=== PATIENT | female | born 1985 | race Caucasian/White ===

== ENCOUNTER → 2019-02-07 | Outpatient (CLI) | payer OTHER, SELFPAY | END | disposition home or self-care (01) | LOC: LAB 12:51 | PROVIDERS: Referring Provider Obstetrics & Gynecology; Visit Provider Obstetrics & Gynecology | DX: Z31.430 Encounter of female for testing for genetic disease carrier status for procreative management (principal) | CPT/HCPCS: 36415 ==

== ENCOUNTER 2019-09-16 07:10 | Inpatient (IN) | payer OTHER, SELFPAY ==
[2019-09-16] VITALS (50 sets, daily range): BP systolic 91–136; BP diastolic 50–90; PULSE 87–126; TEMP 36.4–37.4; O2SAT 96–99; BMI 29.8
[2019-09-16] MEDS: Lactated Ringers 1,000 ML 50 ML IV (07:40)
[2019-09-16 07:53] LABS: Absolute Lymphocyte Count 2.08 X10^3/uL (0.83-4.51); Basophil# 0.04 X10^3/uL; Basophil% 0.4 % (0-1); Eosinophil# 0.15 X10^3/uL; Eosinophils% 1.5 % (0-5); Hematocrit 37.4 % (37-47); Lymphocyte # 2.08 X10^3/ul (4.0); Lymphocyte % 21.2 % (19-41); Mean Corp Hgb Conc 34.8 g/dL (32-36); Mean Corpuscular Hgb 32.3 pg (27.0-32.0); Mean Corpuscular Volume 92.8 fL (81-99); Mean Platelet Vol. 10.4 fl (6.2-12.0); Monocyte# 0.52 X10^3/uL; Monocyte% 5.3 % (0-10); NRBC Flagged by Analyzer 0 % (0-5); Neutrophil # 6.96 X10^3/uL (2.7-7.7); Neutrophil % 70.9 % (47-70); Platelet Count 207 K/mm3 (150-450); RBC Distribution Width CV 13.6 % (11.6-14.6); RBC Distribution Width SD 45.7 fl (35.1-43.9); Red Blood Count 4.03 M/mm3 (4.2-5.4); White Blood Count 9.8 K/mm3 (4.4-11.0)
[2019-09-16] MEDS: Oxytocin 30 units/NS 500 ml 30 UNITS/500 ML IV.SOLN IV (08:03)
--- NOTE | 2019-09-16 08:41 | PCM.HP.OB ---
- Problem List (1) Advanced maternal age (AMA) in Status: Acute History Date of Admission: 09/16/19 Final KARLOS: 09/19/19 Gestational age: 39 Weeks and 4 Days History of this : This is a 34 year-old, at 39.4 weeks gestational age here for induction of labor for AMA. Allergies No Known Allergies Allergy (Verified 09/16/19 07:33) Home Medications: Home Medications Tablet 1 tab PO DAILY 09/16/19 Smoking Status: Never smoker Alcohol: None Number of Fetus(es): 1 NST - FHR Rate Baby A Baseline: 135 Variability:: Moderate Accelerations:: 15 x 15 Decelerations:: None NST Reactive:: Yes FHR Category:: Category I Uterine Activity:: irregular contractions History Past Pregnancies: Past Pregnancies Delivery Date Name GA/ Weeks Outcome Route Wt Infant Sex Labor Length Anesthesia Delivery Location Provider FOB Labs: Patient is A+ Rubella- immune HB-negative HIV- NR RPR- NR GBS -negative Expected Delivery Method: Spontaneous Vaginal Physical Exam Vitals: Vital Signs Temp Pulse BP 98.8 F 126 H 125/90 H 09/16/19 07:28 09/16/19 07:28 09/16/19 07:28 General: Alert, Oriented x3, - - Mild anxiety noted. Lungs: Normal air movement Abdomen: Soft, Non Tender, Gravid Neurological: Cranial nerves II-XII grossly intact Estimated gestational size: Appropriate for gestational size Cervix Dilation (cm): 2 Station: -2 Effacement (%): 60 Assessment/Plan All Active Problems Advanced maternal age (AMA) in (Acute) This is a 34 year-old, , at 39.4 weeks gestational age for induction of labor for AMA. Admit to L&D Encouraged ambulation and use of birthing ball Monitor FHT, TOCO Start pitocin and titrate as needed Nitrous if desired Anticipate .
[2019-09-16] MEDS: 0.9% Normal Saline Single 100 ML IV.SOLN. IY (14:00)
--- NOTE | 2019-09-16 14:01 | PCM.PN.BLA ---
Progress Note Patient continues to ambulate hallways. Stated not feeling many contractions at this time. Denies any pain. Discussed R/B/A to placement of a elias bulb to assist with dilation. Patient agrees to plan of care. Pitocin at 12mu/min at this time. Category 1 tracing. CE- 2/60/-2 . Elias bulb placed and filled with 40cc/NS. Patient tolerated procedure well. A/P Continue to monitor with EFM, and TOCO Continue to titrate Pitocin Pain medication/ epidural when indicated Anticipate STROKE Vital Signs/Narrative: Vital Signs Temp Pulse BP Pulse Ox 09/16/19 13:31 98 109/73 09/16/19 13:30 98.5 F 09/16/19 12:19 97.6 F L 90 113/72 97 09/16/19 11:23 90 111/73 09/16/19 11:22 97.6 F L 09/16/19 10:05 101 H 97 09/16/19 10:04 98.7 F 97 113/78 97
--- NOTE | 2019-09-16 17:39 | PCM.PN.BLA ---
Progress Note Foleybulb out around 1530. Reports mild contractions. Interested in epidural placement soon. CE- 4-5/80/-2 A.R.O.M for clear fluid by Dr. Gallardo. A/P Continue plan of care. Epidural when desires Continue pitocin titration Anticipate STROKE Vital Signs/Narrative: Vital Signs Temp Pulse BP Pulse Ox 09/16/19 16:34 98.9 F 93 119/69 97 09/16/19 15:23 98.7 F 90 130/84 H 96 09/16/19 14:40 98.5 F 87 111/70
[2019-09-16] MEDS: Lactated Ringers 500 ML 999 ML IV ×2 (17:40→22:49)
[2019-09-16] MEDS: fentaNYL-bupivacaine (epidural) 100 ML BAG EPIDURAL ×2 (18:28→22:37)
[2019-09-16] MEDS: Lactated Ringers 1,000 ML 200 ML IV (19:36)
--- NOTE | 2019-09-16 22:15 | PCM.PN.BLA ---
Progress Note Patient resting comfortably with epidural anesthesia. Denies pain at this time. Irregular variables at times. Moderate variability with accelerations present. Over all reassuring. CE- 6/80/-2 IUPC placed without difficulty to assist with titration of Pitocin Continue with plan of care Frequent position changes/ utilization of peanut ball Anticipate . STROKE Vital Signs/Narrative: Vital Signs Temp Pulse BP Pulse Ox 20 21:45 97.8 F 97 20 21:44 98 101/69 20/20 21:12 98.1 F 98 106/63 96 20/20 20:06 97.9 F 97 109/66 98 20/20 19:27 93 109/60 20/20 19:26 99.0 F 98 09/15/20 19:25 97 20/20 19:20 112 H 96 20/20 19:15 104 H 97 20/20 19:10 101 H 98 20/20 19:05 94 97/54 L 98 20/20 19:01 101 H 108/55 L /20/20 19:00 99 97 03/20/20 18:57 102 H 114/58 L 03/20/20 18:55 100 97 03/20/20 18:52 103 H 131/59 H 0320/20 18:50 96 97 03/20/20 18:45 107 H 103/59 L 98 /20/20 18:41 104 H 111/62 03/20/20 18:40 105 H 99 03/20/20 18:37 104 H 97/54 L 03/20/20 18:36 100 105/59 L 03/20/20 18:35 98 03/20/20 18:34 103 H 93/55 L 03/20/20 18:33 106 H 96/58 L 03/20/20 18:31 110 H 106/57 L 03/20/20 18:30 98 03/20/20 18:27 107 H 111/62 03/20/20 18:25 107 H 99 03/20/20 18:21 95 136/63 H 03/20/20 18:20 97
[2019-09-16] MEDS: Ondansetron 4 MG/2 ML Vial IV (22:37)
[2019-09-17] VITALS (37 sets, daily range): BP systolic 92–125; BP diastolic 52–77; PULSE 79–180; RESP 16–18; TEMP 36.7–37.8; O2SAT 82–100
[2019-09-17] MEDS: Lactated Ringers 1,000 ML 200 ML IV (02:26)
--- NOTE | 2019-09-17 02:35 | PCM.PN.BLA ---
Progress Note Patient is completely dilated and has been pushing for 1 hour. Pain well controlled with epidural. Category 1 tracing. CE-complete at 0 station. Discussed allowing patient to labor down for an hour and resume pushing. Patient and agree with plan of care. Continue plan of care. Resume pushing in 1 hour Anticipate STROKE Vital Signs/Narrative: Vital Signs Temp Pulse BP Pulse Ox 09/17/19 01:53 102 H 113/65 09/17/19 01:52 98.9 F 97 09/17/19 01:51 114 H 93 09/17/19 01:50 100 96 09/17/19 01:00 104 H 97 09/17/19 00:55 104 H 98 09/17/19 00:50 92 108/64 09/17/19 00:49 98.6 F 98 09/16/19 23:36 98.1 F 94 91/54 L 96 09/16/19 22:45 99.2 F H 100 92/50 L 97
[2019-09-17] MEDS: Oxytocin 30 units/NS 500 ml 30 UNITS/500 ML IV.SOLN 334 UNITS IV (06:00)
--- NOTE | 2019-09-17 06:44 | PCM.OPRPT ---
Problem List (1) Advanced maternal age (AMA) in Status: Acute (2) Vaginal delivery Status: Acute (3) Perineal laceration during delivery, delivered Status: Acute Report of Operation Date of Procedure: 09/17/19 Vaginal Delivery Maternal Presentation: Medically Indicated Induction Method of Induction: Pitocin, Cruz Bulb, Amniotomy Medical Reason for Induction: - - AMA Amniotic Membrane Rupture Type: Artificial Rupture of Membrane time: 1730 Amniotic Fluid Description: Clear Final KARLOS: 09/19/19 Final KARLOS Source: [place] <20 weeks Gestational age: 39 Weeks and 5 Days Date of Procedure: 09/17/19 Pre-Operative Diagnosis: Induction of labor, term gesation, advanced maternal age Post-Operative Diagnosis: same, live female Surgery/ Procedure Performed: Spontaneous Vaginal Delivery Type of Anesthesia: Epidural Description of Procedure: of live female infant without complication. Good maternal pushing efforts delivered head. Gentle downward traction with delivery of the anterior shoulder followed by the rest of the infant's body. Infant was vigorous and placed on maternal chest. Delayed cord clamping and cutting of cord performed. Placenta delivered intact without difficulty. Second-degree laceration repaired with 3-0 Rapide. Mother and baby bonding at this time. Presentation: Vertex, PEPPER Placental Delivery Description: Spontaneous Placenta Disposition: Pt. donated cord and placenta Cord Vessel Description: 3 Vessels Estimated Blood Loss: 250 A gender: Female (1 minute): 8 (5 minute): 9 Episiotomy Description: None Laceration: 2nd degree Medications given after delivery: IV Pitocin
[2019-09-17] MEDS: Acetaminophen 500 MG Tablet 1000 MG PO ×2 (11:39→19:48)
[2019-09-17] MEDS: Prenatal Vits Tablet 1 TABLET PO (11:39)
[2019-09-17] MEDS: Ibuprofen 600 MG Tablet PO ×2 (14:20→23:38)
[2019-09-17] MEDS: Senna/Docusate Sodium 1 Tablet PO (19:49)
[2019-09-18 00:15] VITALS: BP 116/77; PULSE 79; RESP 18; TEMP 36.5; O2SAT 97
[2019-09-18 04:52] VITALS: BP 106/60; PULSE 67; RESP 16; TEMP 36.4
[2019-09-18] MEDS: Acetaminophen 500 MG Tablet 1000 MG PO ×2 (05:03→16:09)
[2019-09-18] MEDS: Senna/Docusate Sodium 1 Tablet PO (07:53)
[2019-09-18 08:00] VITALS: BP 111/69; PULSE 72; RESP 18; TEMP 36.4
[2019-09-18] MEDS: Ibuprofen 600 MG Tablet PO (09:33)
--- NOTE | 2019-09-18 09:54 | PCM.PN.OB ---
Patient Problems: Active and Suspected Problems Advanced maternal age (AMA) in (Acute) Vaginal delivery (Acute) Perineal laceration during delivery, delivered (Acute) Subjective: Patient seen at bedside. Ambulating in room. Pain controlled with Motrin at this time. Stated just feeling sore and tired. Patient having increased pain with . Seen by and plan of care started. Initially thought she may want to be discharged after 24 hours but may stay to get help and support with . - Physical Exam Vitals/I&O's: Vital Signs Temp Pulse Resp BP Pulse Ox 97.5 F L 72 18 111/69 97 09/18/19 08:00 09/18/19 08:00 09/18/19 08:00 09/18/19 08:00 09/18/19 00:15 Oxygen Delivery Method Room Air Weight: 179 lb 3.2 oz Body Mass Index (BMI) 29.8 Intake and Output for Last 24 Hours 09/16/19 09/17/19 09/18/19 23:59 23:59 23:59 Intake Total 2307.90 / 2307.90 3159.90 / 3159.90 Output Total 1450 / 1450 Balance 2307.90 / 2307.90 1709.90 / 1709.90 General: Alert, Oriented x3 Lungs: Normal air movement Cardiovascular: Regular rate Abdomen: Soft, Non Tender Neurological: Cranial nerves II-XII grossly intact Psych/Mental Status: Normal Affect, - - Tearful at times when discussing . Support and encouragement provided Current Medications Acetaminophen (Tylenol) 1,000 mg PO Q8H PRN PRN PRN Reason: Pain Score 1-3/10 Last Admin: 09/18/19 05:03 Dose: 1,000 mg Documented by: Bisacodyl (Dulcolax) 10 mg RECTAL UD PRN PRN Reason: If no BM Dibucaine (Dibucaine) 1 applic TOPICAL TID PRN PRN; Protocol PRN Reason: Discomfort Hydrocortisone (Hytone) 1 applic TOPICAL TID PRN PRN; Protocol PRN Reason: Discomfort Ibuprofen (Motrin) 600 mg PO Q6H PRN PRN PRN Reason: Pain Score 1-3/10 Last Admin: 09/18/19 09:33 Dose: 600 mg Documented by: Methylergonovine Maleate (Methergine) 0.2 mg IM X1 PRN PRN Reason: Excess bleeding/uterine atony Ondansetron HCl (Zofran) 4 mg IV Q4H PRN PRN PRN Reason: Nausea Multivit/Folic Acid/Iron (Prenatabs Fa) 1 tablet PO DAILY@1200 TOMAS Last Admin: 09/17/19 11:39 Dose: 1 tablet Documented by: Senna/Docusate Sodium (Senokot-S, Tracey-Colace) 1 - 2 tablet PO DAILY PRN PRN PRN Reason: Constipation Last Admin: 09/18/19 07:53 Dose: 1 tablet Documented by: Simethicone (Mylicon) 80 mg PO PCHS PRN PRN Reason: Indigestion/Stomach pain Sodium Chloride () 5 - 15 ml IV UD PRN PRN Reason: SALINE FLUSH Medical Necessity - Tobacco Use Smoking Status: Never smoker Assessment/Plan All Active Problems Advanced maternal age (AMA) in (Acute) Vaginal delivery (Acute) Perineal laceration during delivery, delivered (Acute) PPD #1 Routine care consult Pain management
[2019-09-18] MEDS: Prenatal Vits Tablet 1 TABLET PO (11:32)
[2019-09-18 14:00] VITALS: BP 110/62; PULSE 85; RESP 16; TEMP 36.6
--- NOTE | 2019-09-18 15:33 | DCINST_ITS ---
Discharge Diet: No Restrictions May resume sexual activity in: 6-8 weeks Lifting Restrictions: 25 lbs Call your doctor if your incision/area has: Sudden Increased Bleeding, Increased Pain/ Swelling, Foul Smelling Discharge Call your doctor if you observe: Fever of 101 or Higher, Inability to have a bowel movement, Using more than one pad per hour, Shortness of breath, Dizziness, Chest pain, Calf discomfort Additional Instructions: If you experience any of the following, contact your healthcare provider. * Bleeding that soaks a pad every hour for 2 hours * Fever 100.4 or higher * Unrelieved incision or abdominal pain * Swelling, redness, discharge or bleeding from your incision or episiotomy site * Your incision begins to separate * Problems urinating (including inability to urinate or burning while urinat ing). * Visual changes * Severe headache * Flu-like symptoms * Pain or redness in one of both of your breasts * Pain, warmth, tenderness or swelling in your legs, especially the calf area * Frequent nausea and vomiting * Symptoms of depression or anxiety If you experience any of the following, call 911 or go to the nearest Emergency Room. * Chest pain * Problems breathing * Seizure activity * Partial or complete paralysis of a body part, slurred speech, weakness or drooping of the face, or a sudden inability to walk or hold your balance Allergies/Adverse Reactions: Allergies No Known Allergies Allergy (Verified 09/16/19 07:33) Medications to take at Discharge Tablet 1 tab PO DAILY 09/16/19 When: 2 weeks virtual visit Primary Care Physician: Care Physician,No Primary [Primary Care Provider] - Test Results: Test results from this visit will be discussed in further detail at your follow- up appointment, if applicable. Proposed Discharge Date: 09/18/19
--- NOTE | 2019-09-18 15:33 | PCM.DCVAG ---
Discharge Diet: No Restrictions May resume sexual activity in: 6-8 weeks Lifting Restrictions: 25 lbs Call your doctor if your incision/area has: Sudden Increased Bleeding, Increased Pain/ Swelling, Foul Smelling Discharge Call your doctor if you observe: Fever of 101 or Higher, Inability to have a bowel movement, Using more than one pad per hour, Shortness of breath, Dizziness, Chest pain, Calf discomfort Additional Instructions: If you experience any of the following, contact your healthcare provider. Bleeding that soaks a pad every hour for 2 hours Fever 100.4 or higher Unrelieved incision or abdominal pain Swelling, redness, discharge or bleeding from your incision or episiotomy site Your incision begins to separate Problems urinating (including inability to urinate or burning while urinating). Visual changes Severe headache Flu-like symptoms Pain or redness in one of both of your breasts Pain, warmth, tenderness or swelling in your legs, especially the calf area Frequent nausea and vomiting Symptoms of depression or anxiety If you experience any of the following, call 911 or go to the nearest Emergency Room. Chest pain Problems breathing Seizure activity Partial or complete paralysis of a body part, slurred speech, weakness or drooping of the face, or a sudden inability to walk or hold your balance Allergies/Adverse Reactions: Allergies No Known Allergies Allergy (Verified 09/16/19 07:33) Medications to take at Discharge Tablet 1 tab PO DAILY 09/16/19 When: 2 weeks virtual visit Primary Care Physician: Care Physician,No Primary [Primary Care Provider] - Test Results: Test results from this visit will be discussed in further detail at your follow-up appointment, if applicable. Proposed Discharge Date: 09/18/19
== END 2019-09-18 17:15 | disposition home or self-care (01) | DRG 807 ==
PROVIDERS: Admitting Provider Obstetrics & Gynecology; Referring Provider Obstetrics & Gynecology; Visit Provider Obstetrics & Gynecology
DX: O70.1 Second degree perineal laceration during delivery (principal); Z3A.39 39 weeks gestation of pregnancy; Z37.0 Single live birth
CPT/HCPCS: 59025; 59050; 85025; 86850; 86900; 86901; 99218; J7120; G0378; J2405

== ENCOUNTER → 2019-11-25 11:48 | Outpatient (CLI) | payer OTHER, SELFPAY ==
[2019-09-16 07:30] VITALS: BMI 29.8
== END ==
PROVIDERS: Referring Provider Obstetrics & Gynecology; Visit Provider Obstetrics & Gynecology
DX: Z39.1 Encounter for care and examination of lactating mother (principal)
CPT/HCPCS: 96158; 96159

== ENCOUNTER → 2022-07-15 | Outpatient (CLI) | payer BC, SELFPAY ==
--- NOTE | 2022-07-15 08:30 | MRI_ITS ---
STUDY: MRI BRAIN WITH AND WITHOUT CONTRAST (ATTENTION INTERNAL AUDITORY CANALS - I.A.C.''s) REASON FOR EXAM: Female, 37 years old. LEFT tinnitus TECHNIQUE: Standardized multiplanar fat and water weighted pulse sequences were obtained. ml of Yes YES contrast material was administered intravenously for the contrast portion of the examination. COMPARISON: None. FINDINGS: Normal bilateral temporal bones. Normal bilateral internal auditory canals. There is no demonstrated intracanalicular or cisternal vestibular schwannoma (acoustic neuroma). There is no enhancement of the bilateral VIIth or VIIIth cranial nerves. Normal bilateral cochlea, vestibules and semicircular canals. No demonstrated cerebellar pontine angle mass or cyst. There is no abnormal enlargement of the 7th and 8th cranial nerves. The bilateral mastoid air cells are normal. No demonstrated MONDINI''s malformation. Normal size of the ventricles and extra-axial spaces for the patient''s age. Normal white matter tracts of the supratentorial brain. There is no evidence for recent intracranial ischemia or other cause of cytotoxic edema on diffusion weighted imaging (DWI). Normal T2* images of the brain without demonstrated susceptibility artifact. There is no demonstrated hemosiderin stain. There are no demyelinating plagues of the supratentorial brain, brainstem or cerebellum. There are no findings suspicious for multiple sclerosis (MS). Normal bilateral basal ganglia. Normal thalami. Normal flow voids within the major intracranial circulation suggesting patency by spin echo criteria. Normal venous enhancement. There is no enhancing intra-axial or extra-axial abnormality. There is no extra-axial fluid accumulation. Normal sella turcica, pituitary gland, infundibular stalk, optic chiasm and hypothalamus. Normal tectal plate and pineal gland. Normal midbrain, jaime and medulla. Normal cerebellum. Normal basal cisterns. No demonstrated orbital abnormality, within the constraints of a routine brain study. Normal visualized paranasal sinuses. Normal calvarium and skull base. Normal visualized soft tissue structures. Normal visualized upper cervical spine. MRI/Brain W/WO Contrast IMPRESSION: Normal unenhanced and enhanced MRI of the bilateral internal auditory canals (I.A.C''s). Electronically Signed: Tab Smyth MD at 16:03 [facility] ,
== END | disposition home or self-care (01) ==
PROVIDERS: Referring Provider Otolaryngology; Visit Provider Otolaryngology
DX: H93.12 Tinnitus, left ear (principal)
CPT/HCPCS: 70553; A9575